=== PATIENT | male | born 1995 | race Caucasian/White ===

== ENCOUNTER 2018-09-03 18:07 | Emergency (ER) | payer BC, SELFPAY ==
[2018-09-03 18:08] VITALS: BP 146/77; PULSE 109; RESP 18; TEMP 36.9; O2SAT 100; BMI 20.5
--- NOTE | 2018-09-03 18:16 | EKG12_ITS ---
Test Reason : SOB Blood Pressure : / mmHG Vent. Rate : 110 BPM Atrial Rate : 110 BPM P-R Int : 122 ms QRS Dur : 086 ms QT Int : 320 ms P-R-T Axes : 054 084 -01 degrees QTc Int : 433 ms Sinus tachycardia Otherwise normal ECG Confirmed by SHAHEEN DO, BETO ([id number]), general expeditor BABATUNDE SALAS ([id number]) on 09/05/2018 8:58:42 AM Referred By: SRINATH Confirmed By:BETO JAMISON MD
--- NOTE | 2018-09-03 18:18 | ED.RN ---
NO OLD EKGS IN MUSE.
--- NOTE | 2018-09-03 18:20 | RAD_ITS ---
STUDY: X-RAY CHEST REASON FOR EXAM: Male, 23 years old. Heart palpitations, chest pain TECHNIQUE: AP COMPARISON: None. FINDINGS: EKG leads project over the chest. The lungs are clear and expanded. There is no demonstrated pleural abnormality. Normal size heart. Normal mediastinum and satish. Normal visualized pulmonary arteries. Normal visualized aortic arch and descending thoracic aorta. Normal visualized thoracic spine. Normal visualized ribs, clavicles, and shoulders. There is no demonstrated abnormality of the visualized soft tissue structures of the upper abdomen. RAD/Chest 1 View (Portable) IMPRESSION: Nonacute portable x-ray examination of the chest. Electronically Signed: Mickey Adhikari MD at 19:06 EST , Service support ,
[2018-09-03 18:22] VITALS: O2SAT 99
--- NOTE | 2018-09-03 18:26 | ED.VISSUMM ---
- ER Visit Summary Date of Service: 09/03/18 Chief Complaint: [] Palpitations while at work increased work-related stress History of Present Illness: The patient is a 23 M [] history of palpitations related to stress, indicates he was at work there was work related stress with coworkers would not basically execute their work duties, patient began having palpitations he was brought to the hospital. He was fine when he woke up this morning he has no other complaints he is having no symptoms now has no history of [place] PE DVT or any past history of any kind review of systems are negative Physical Examination: [] 140/70 heart rate 90 General, no distress resting comfortably HEENT is generally unremarkable The neck is supple no adenopathy Cardiovascular, regular rate and rhythm Lungs, clear bilateral Abdomen, soft nontender Extremities, no clubbing cyanosis or edema Neurologic, awake alert answering questions appropriately moving all 4 extremities Patient's EKG shows a sinus with nothing acute screening labs are obtained and are unremarkable he is remained asymptomatic here, he is comfortable discharge home he will follow-up with his outpatient providers and return for change in symptoms he is very comfortable with this plan Test Results: [] Emergency Department Course and Treatment: [] Treatment Plan: [] Disposition: [] Home stable Impression: [] Palpitations, work-related stress This note was generated with [employer] dictation software. It may contain incorrect words, spelling, and punctuation that were not noted in review of the chart prior to signing ED Disposition - Plan for ED Patient: Chief Complaint: Palpitations
--- NOTE | 2018-09-03 18:36 | ED.DCSUM_ITS ---
- ER Visit Summary Date of Service: 09/03/18 Chief Complaint: [] Palpitations while at work increased work-related stress History of Present Illness: The patient is a 23 M [] history of palpitations related to stress, indicates he was at work there was work related stress with coworkers would not basically execute their work duties, patient began having palpitations he was brought to the hospital. He was fine when he woke up this morning he has no other complaints he is having no symptoms now has no history of [place] PE DVT or any past history of any kind review of systems are negative Physical Examination: [] 140/70 heart rate 90 General, no distress resting comfortably HEENT is generally unremarkable The neck is supple no adenopathy Cardiovascular, regular rate and rhythm Lungs, clear bilateral Abdomen, soft nontender Extremities, no clubbing cyanosis or edema Neurologic, awake alert answering questions appropriately moving all 4 extremities Patient's EKG shows a sinus with nothing acute screening labs are obtained and are unremarkable he is remained asymptomatic here, he is comfortable discharge home he will follow-up with his outpatient providers and return for change in symptoms he is very comfortable with this plan Test Results: [] Emergency Department Course and Treatment: [] Treatment Plan: [] Disposition: [] Home stable Impression: [] Palpitations, work-related stress This note was generated with [employer] dictation software. It may contain incorrect words, spelling, and punctuation that were not noted in review of the chart prior to signing ED Disposition - Plan for ED Patient: Chief Complaint: Palpitations
--- NOTE | 2018-09-03 18:36 | ED.DEP ---
ED Disposition - Plan for ED Patient: Chief Complaint: Palpitations Instructions: ED Palpitations Referrals: Fred Jackson MD [STAFF PHYSICIAN] -
[2018-09-03] MEDS: 0.9% Normal Saline 1,000 ML 1000 ML IV (18:49)
[2018-09-03 18:58] LABS: Absolute Lymphocyte Count 2.04 X10^3/ul (0.83-4.51); Absolute Neutrophil Count 9.6 X10^3/uL (2.0-7.7); Basophil# 0.02 X10^3/uL; Basophil% 0.2 % (0-1); Eosinophil# 0.02 X10^3/uL; Eosinophils% 0.2 % (0-5); Hematocrit 42.5 % (40-54); Hemoglobin 14.4 g/dl (13.0-16.5); Lymphocyte # 2.04 X10^3/ul (4.0); Lymphocyte % 16.5 % (19-41); Mean Corp Hgb Conc 33.9 g/gl (32-36); Mean Corpuscular Hgb 29.7 pg (27.0-32.0); Mean Corpuscular Volume 87.6 fL (80-94); Mean Platelet Vol. 8.9 fl (6.2-12.0); Monocyte# 0.65 X10^3/uL; Monocyte% 5.3 % (0-10); Neutrophil # 9.63 X10^3/uL (2.7-7.7); Neutrophil % 77.6 % (47-70); Platelet Count 255 K/mm3 (150-450); RBC Distribution Width CV 12.7 % (11.6-14.6); RBC Distribution Width SD 40.9 fl (35.1-43.9); Red Blood Count 4.85 M/mm3 (4.6-6.2); White Blood Count 12.4 K/mm3 (4.4-11.0)
[2018-09-03 18:59] LABS: POSITIVE COUNT NO; POSITIVE DIFFERENTIAL NO; POSITIVE MORPHOLOGY NO
[2018-09-03 19:20] LABS: Anion Gap 11 (5-15); BUN 18 mg/dL (7-18); BUN/Creat Ratio 20.8 RATIO (10-20); Calcium,Total 9.2 mg/dL (8.5-10.1); Chloride 99 mmol/L (98-107); Creatinine, Serum 0.86 mg/dL (0.70-1.30); EST Glomerular Filtration Rate 116 mL/min (>60); Est Glom Filt Rate - Afr Amer 141 mL/min (>60); Estimated Creatinine Clearance 115.71 ml/min; Glucose 95 mg/dL (74-106); Potassium 3.6 mmol/L (3.5-5.1); Sodium Level 138 mmol/L (136-145)
[2018-09-03 19:47] VITALS: BP 138/86; PULSE 95; RESP 16; O2SAT 98
== END 2018-09-03 19:51 | disposition home or self-care (01) ==
PROVIDERS: Emergency Provider Emergency Medicine
DX: R00.2 Palpitations (principal)
CPT/HCPCS: 71045; 80048; 84484; 85025; 93005; 96360; 99284; J7030; A4216